=== PATIENT | male | born 1985 | race Caucasian/White ===

== ENCOUNTER 2016-08-06 08:10 | Emergency (ER) | payer BC | END 2016-08-06 09:12 | disposition home or self-care (01) | LOC: CFTX 08:10 → CED 08:10 → CFTX 08:45 | DX: M43.6 Torticollis (principal); I10 Essential (primary) hypertension; Z88.0 Allergy status to penicillin; Z88.8 Allergy status to other drugs, medicaments and biological substances | CPT/HCPCS: 96372; 99283; J1885 ==

== ENCOUNTER 2016-08-10 00:47 | Emergency (ER) | payer BC ==
--- NOTE | ~2016-08-10 | CT52 ---
[facility] RADIOLOGY TEXT RESULTS PATIENT: ANDREZ WOO LOCATION: [facility] : 85 UNIT #: [id number] AGE: [address]: COY JACKSON APRN SEX: M ORDER DR: [id number] [place], [place] [address] [id number] MR#: [id number] Acc #: [id number] NAME: ANDREZ WOO : 1985 SEX: M STUDY DATE/TIME: 08/10/2016 4:03 UNIT: [facility] ROOM: STUDY DESCRIPTION: CT Cervical Spine Wo Cont Attending Physician: Coy Jackson Aprn Ordering Physician: Coy Jackson Aprn Primary Care Physician: Jesús Klein Jr., A.P.R.N. MEDICAL IMAGING REPORT This report is preliminary unless electronic signature is present EXAM CT cervical spine without contrast INDICATIONS Neck pain for the past [address] cervical spine. This CT exam was performed with one or more of the following radiation dose reduction techniques: automatic control, adjustment of mA and/or kV according to patient size, and iterative reconstruction. COMPARISON None FINDINGS Reversal of the normal cervical lordosis. Otherwise cervical bodies maintain normal height and alignment. Craniocervical junction and the dens are intact. No fracture. Multilevel degenerative disc disease with varying degrees of central canal narrowing. No critical neural foraminal narrowing. Dictated by... Kunal Villagomez M.D. THIS IS AN ELECTRONICALLY VERIFIED REPORT Kunal Villagomez M.D. at 08/10/2016 10:05 PM SERENA/sudha TD: 08/10/2016 04:36 JOB #: [id number] MEDICAL IMAGING REPORT [facility] RADIOLOGY TEXT RESULTS PATIENT: ANDREZ WOO LOCATION: [facility] : 85 UNIT #: [id number] AGE: [address]: COY JACKSON APRN SEX: M ORDER DR: Page 1 of 1 COPY
== END 2016-08-10 05:39 | disposition home or self-care (01) ==
LOC: CED 00:47
DX: M50.30 Other cervical disc degeneration, unspecified cervical region (principal); I10 Essential (primary) hypertension; F17.210 Nicotine dependence, cigarettes, uncomplicated; Z88.0 Allergy status to penicillin; Z88.8 Allergy status to other drugs, medicaments and biological substances
CPT/HCPCS: 72125; 99284